=== PATIENT | male | born 1955 | race Caucasian/White ===

== ENCOUNTER 2016-12-28 18:15 | Emergency (ER) | payer BC ==
[~2016-12-28] VITALS: Ht 177.8 cm; Wt 85.0 kg
[~2016-12-28 18:15] MED LIST: AMLODIPINE5 MG PO; ATENOLOL25 MG PO; CRESTOR10 MG PO; CYMBALTA20 MG PO; WARFARIN6 MG PO; ZOFRAN ODT4 MG SL
[2016-12-28 19:21] LABS: HEMATOCRIT 46.8 % (39.0-50.0); HEMOGLOBIN 16.5 g/dl (14.0-18.0); IMMATURE GRANULOCYTES 0.2 % (0.0-1.0); MEAN CELL VOLUME 97.1 fL CALC (80.0-100.0); MEAN CORPUSCULAR HGB 34.2 pG CALC (26.0-32.0); MEAN CORPUSCULAR HGB CONC 35.3 g/L CALC (32.0-36.0); NEUT# 2.75 thou/uL (1.82-7.42); RED BLOOD COUNT 4.82 mill/uL (4.70-6.10); RED CELL DISTRI WIDTH 13.6 % (11.5-15.5)
[2016-12-28] MEDS ORDERED: AMLODIPINE5 MG PO (19:26)
[2016-12-28] MEDS ORDERED: SUCRALFATE1 GM PO (19:27)
[2016-12-28] MEDS ORDERED: DESIPRAMINE PO (19:28)
[2016-12-28] MEDS ORDERED: OMEPRAZOLE20 M2 PO (19:28)
[2016-12-28 19:36] LABS: PROTHROMBIN TIME 10.8 SECONDS (9.0-12.5)
[2016-12-28 19:38] LABS: ALBUMIN 4.3 g/dL (3.2-5.0); ALKALINE PHOSPHATASE 94 u/l (38-126); ANION GAP 15 (6-22 (CALC)); BILIRUBIN, TOTAL 1.7 mg/dL (0.0-1.4); BUN 9 mg/dL (8-23); BUN/CREATININE RATIO 13 (12-20 (CALC)); CALCIUM 9.2 mg/dL (8.4-10.2); CARBON DIOXIDE 25 mmol/l (22-30); CHLORIDE 106 mmol/l (95-108); CREATININE 0.7 mg/dL (0.7-1.3); GFR > 60 ML/MIN (>=60 (CALC)); GFR FOR AFR.AMER. > 60 ML/MIN (>=60 (CALC)); GLUCOSE 105 mg/dL (82-115); POTASSIUM 3.2 mmol/l (3.5-5.1); SGOT/AST 44 u/l (19-48); SGPT/ALT 56 u/l (11-66); SODIUM 143 mmol/l (137-146); TOTAL PROTEIN 7.8 g/dL (6.3-8.2)
[2016-12-28 19:50] LABS: MYOGLOBIN 34 ng/mL (0 - 121)
[2016-12-28 19:54] LABS: URINE BLOOD DIPSTICK SMALL (NEGATIVE); URINE GLUCOSE - DIPSTICK NEGATIVE (NEGATIVE); URINE KETONE 15 mg/dL (NEGATIVE); URINE LEUK ESTERASE NEGATIVE (NEGATIVE); URINE PH 7.5 (4.5-8.0); URINE PROTEIN - DIPSTICK 100 mg/dL (NEG-TRACE); URINE SPECIFIC GRAVITY 1.015
[2016-12-28 19:57] LABS: URINE CLARITY HAZY; URINE COLOR DK. YELLOW; URINE NITRITE - DIPSTICK POSITIVE (Negative)
[2016-12-28 19:58] LABS: URINE BILIRUBIN - DIPSTICK NEGATIVE (NEGATIVE)
[2016-12-28 20:06] LABS: URINE WBC 0-2 WBC/hpf (0-5)
[2016-12-28] MEDS ORDERED: ZOFRAN ODT4 MG PO (20:42)
[2016-12-28] MEDS ORDERED: MACROBID100 MG PO (20:42)
[2016-12-28 20:49] LABS: BARBITURATES NEGATIVE (NEGATIVE); COCAINE NEGATIVE (NEGATIVE); METHADONE NEGATIVE (NEGATIVE); OXCYCODONE NEGATIVE (NEGATIVE); TETRAHYDROCANNABIONOL NEGATIVE (NEGATIVE); TRICYLIC ANTIDEPRESSANTS POSITIVE (NEGATIVE)
[2016-12-28 20:57] VITALS: BP 154/102
== END 2016-12-28 21:42 | disposition home or self-care (01) | DRG 866 ==
LOC: ED 18:15
PROVIDERS: Emergency Medicine
DX: B34.9 Viral infection, unspecified (principal); I10 Essential (primary) hypertension; N39.0 Urinary tract infection, site not specified; F41.9 Anxiety disorder, unspecified; F17.210 Nicotine dependence, cigarettes, uncomplicated; Z86.718 Personal history of other venous thrombosis and embolism; Z86.711 Personal history of pulmonary embolism; Z79.01 Long term (current) use of anticoagulants; E78.5 Hyperlipidemia, unspecified; Z95.5 Presence of coronary angioplasty implant and graft
CPT/HCPCS: J1956

== ENCOUNTER → 2018-08-29 | Outpatient (REF) | payer BC ==
[~2018-08-29] MED LIST changes: +DESIPRAMINE PO; +MACROBID100 MG PO; +OMEPRAZOLE20 M2 PO; +SUCRALFATE1 GM PO; +ZOFRAN ODT4 MG PO
== END | disposition home or self-care (01) | DRG 301 ==
LOC: STRESS 10:54 → NUCMED 11:15
PROVIDERS: ATTEND Internal Medicine
DX: I70.209 Unspecified atherosclerosis of native arteries of extremities, unspecified extremity (principal); Z95.820 Peripheral vascular angioplasty status with implants and grafts
CPT/HCPCS: A9502; J2785